=== PATIENT | male | born 1990 | race Caucasian/White ===

== ENCOUNTER 2017-07-28 17:51 | Emergency (ER) | payer BC ==
[~2017-07-28] VITALS: Ht 198.1 cm; Wt 117.9 kg
[2017-07-28] MEDS ORDERED: VISTARIL50 MG PO (19:04)
== END 2017-07-28 19:35 | disposition home or self-care (01) ==
LOC: ED 17:51
DX: F41.9 Anxiety disorder, unspecified (principal)
CPT/HCPCS: 99283